=== PATIENT | male | born 1950 | race Caucasian/White ===

== ENCOUNTER 2019-02-17 14:32 | Outpatient (REF) | payer MEDICARE, BC, SELFPAY ==
[2019-02-17 21:33] LABS: Anion Gap 8.5 mmol/L (3-11); BUN 22 mg/dL (7-18); CO2 31.5 mmol/L (21.0-32.0); CREATININE 1.28 mg/dL (0.70-1.30); Calcium 9.4 mg/dL (8.5-10.1); Chloride 99 mmol/L (98-107); Cholesterol 206 mg/dL (50-200); Estimated GFR 56.06 (mL/min/1.73m2); Ferritin 13 ng/mL (8-388); Glucose 100 mg/dL (70-100); HDL Cholesterol 49 mg/dL (40-60); LDL CHOLESTEROL 139 mg/dL (<100); Sodium 139 mmol/L (136-145); Triglyceride 91 mg/dL (30-150)
[2019-02-17 21:52] LABS: Potassium 2.9 mmol/L (3.5-5.1)
== END 2019-02-17 14:52 ==
LOC: NCHCN 14:32
PROVIDERS: PCP Internal Medicine; Visit Provider Internal Medicine
DX: I10 Essential (primary) hypertension (principal); D64.9 Anemia, unspecified
CPT/HCPCS: 80048; 80061; 83721; 82728

== ENCOUNTER 2019-02-18 09:22 | Outpatient (REF) | payer MEDICARE, BC, SELFPAY ==
[2019-02-18 21:32] LABS: Potassium 3.1 mmol/L (3.5-5.1)
== END 2019-02-18 09:42 ==
LOC: NCHCN 09:22
PROVIDERS: PCP Internal Medicine; Visit Provider Internal Medicine
DX: I10 Essential (primary) hypertension (principal); E87.6 Hypokalemia
CPT/HCPCS: 83735; 84132

== ENCOUNTER 2019-02-21 09:05 | Outpatient (REF) | payer MEDICARE, BC, SELFPAY ==
[2019-02-22 08:09] LABS: Potassium 3.5 mmol/L (3.5-5.1)
== END 2019-02-21 09:25 ==
LOC: NCHCN 09:05
PROVIDERS: PCP Internal Medicine; Visit Provider Internal Medicine
DX: E87.6 Hypokalemia (principal)
CPT/HCPCS: 84132

== ENCOUNTER 2019-05-24 07:47 | Outpatient (REF) | payer MEDICARE, BC, SELFPAY ==
[2019-05-24 22:46] LABS: Anion Gap 9.7 mmol/L (3-11); BUN 17 mg/dL (7-18); CO2 28.3 mmol/L (21.0-32.0); CREATININE 1.27 mg/dL (0.70-1.30); Calcium 8.4 mg/dL (8.5-10.1); Calculated LDL 67 mg/dL; Chloride 105 mmol/L (98-107); Cholesterol 127 mg/dL (50-200); Glucose 80 mg/dL (70-100); HDL Cholesterol 49 mg/dL (40-60); Potassium 4.4 mmol/L (3.5-5.1); Sodium 143 mmol/L (136-145); Triglyceride 58 mg/dL (30-150)
== END 2019-05-24 08:07 ==
LOC: NCHCN 07:47
PROVIDERS: PCP Internal Medicine; Visit Provider Internal Medicine
DX: I10 Essential (primary) hypertension (principal); E78.5 Hyperlipidemia, unspecified
CPT/HCPCS: 80048; 80061; 83721

== ENCOUNTER 2019-09-16 07:40 | Outpatient (REF) | payer MEDICARE, BC, SELFPAY ==
[2019-09-16 20:17] LABS: HCT 45.2 % (40.0-50.0); Mean Corpuscular Hemoglobin 24.5 pg (27.0-33.0); Mean Corpuscular Volume 79.2 fL (80-95); Mean Platelet Volume 9.7 fL (8.0-11.0); Platelet Count 263 x1000/uL (130-400); RBC 5.71 m/cumm (4.50-6.00)
[2019-09-16 20:20] LABS: RBC Distribution Width 25.2 % (11.8-14.1)
[2019-09-16 20:38] LABS: Ferritin 28 ng/mL (26-388)
== END 2019-09-16 08:00 ==
LOC: NCHCN 07:40
PROVIDERS: PCP Internal Medicine; Visit Provider Internal Medicine
DX: Z86.2 Personal history of diseases of the blood and blood-forming organs and certain disorders involving the immune mechanism (principal)
CPT/HCPCS: 85027; 82728

== ENCOUNTER 2019-12-19 06:09 | Day surgery (SDC) | payer MEDICARE, BC, SELFPAY ==
[2019-12-19 06:15] VITALS: BP 137/88; PULSE 60; RESP 18; TEMP 36.3; O2SAT 96
[2019-12-19] MEDS: Lactated Ringers 1,000 ML 80 ML IV (06:45)
--- NOTE | 2019-12-19 08:37 | VOCCOR_PTH ---
PATIENT: José Luis Ace LOC: [facility] U#:[id number] AGE/SX: 69/M ROOM: RE12/19/[address]: Alessandro Aaron DO : 1950 BED: DIS: 12/19/2019 SPEC #: [id number] RECD: 12/19/19 12:44 STATUS: SHERIN REQ #: [id number] ELMIRA: 12/19/19 08:[address]: Alessandro Aaron DEPT: Surgical Specimen RECD BY: Deepika Lemus ENTERED: 12/19/19 12:44 SP TYPE: VOCCOR OTHR DR: Tayla Murray Tissues: 1 - VOCAL CORD Procedures: GROSS AND MICRO LEVEL 4 Comments: [id number]
[2019-12-19] MEDS: EPINEPHrine 1 MG/ML AMP pres-free (08:41)
[2019-12-19 09:05] VITALS: BP 131/79; PULSE 68; RESP 16; TEMP 36.3; O2SAT 99
[2019-12-19 09:10] VITALS: BP 131/71; PULSE 63; RESP 16; TEMP 36.3; O2SAT 99
[2019-12-19 09:15] VITALS: BP 122/73; PULSE 62; RESP 16; TEMP 36.3; O2SAT 100
[2019-12-19 09:30] VITALS: BP 143/72; PULSE 63; RESP 15; TEMP 36.4; O2SAT 98
[2019-12-19 10:20] VITALS: BP 143/72; PULSE 63; RESP 15; TEMP 36.4; O2SAT 98
--- NOTE | 2019-12-19 11:17 | ROE_ITS ---
DATE OF PROCEDURE: December 19, 2019 PREOPERATIVE DIAGNOSIS: Right true vocal cord lesion. POSTOPERATIVE DIAGNOSIS: Same, including history of chewing tobacco. PROCEDURE: Micro suspension direct laryngoscopy. Biopsy right true vocal cord. SURGEON: Alessandro Aaron D.O. ANESTHESIA: General. ESTIMATED BLOOD LOSS: < 1 cc COMPLICATIONS: None. CONDITION: The patient tolerated the procedure well. FINDINGS: Right mid true vocal cord lesion. Post biopsy suspect hemorrhagic-type lesion. Intraoper ative pictures taken. SPECIMENS: Right true vocal cord biopsy sent to pathology for analysis. INDICATIONS FOR PROCEDURE: This is a pleasant 69-year-old male with a long history of chewing tobacc o in the past. He underwent upper endoscopy at [facility] over six months ago. He was noted to hav e a lesion on the right true vocal cord. Recommended ENT follow-up. We have aggressively monitored him with anti-reflux medication and endoscopy in the office. He has continued to have erythema along the right cord, initially posterior. This looked good today as we mobilized the ET tube, there was irritation to the mid-cord, which bled upon intubation. There was evidence of mild ulceration, thus dictating the biopsy. We reviewed the risks and complications. Consent was placed in the Chart. We decided to proceed with surgery. PROCEDURE: The patient was brought back to the operative suite in stable condition, placed supine on the operating table and intubated in a normal fashion. The table was rotated 90 degrees. An upper dental guard was placed in the oral cavity and mouth. [facility] The Dedo laryngoscope was placed to the level of the true vocal cord and suspended with padding on the patient's chest. The patient was in a mild extension position. Operative microscope with a 4 00 lens was used to visualize the true vocal cords. Intraoperative pictures were taken with a 0 degr ee endoscope. There was evidence of some bleeding of the right mid cord upon intubation, which was c onfirmed by anesthesia. There appeared to be a friable lesion here. We lowered the cuff. We mobil ized the tube to evaluate and investigate posteriorly of the true cords bilaterally. There were no l esions. The left cord appeared very healthy. Intraoperative pictures were taken. It was felt that biopsy was required of the right true cord. We stayed superiorly off the striking surface. A very s mall, thin layer of biopsy was performed with a right angled biopsy forceps. Hemostasis was controll ed with topical epinephrine 1:1000. Post-procedure pictures and instructions were reviewed. The rem aining portion of the direct laryngoscopy was completed. The epiglottis was normal. There was no le garry within the piriform sinus. There was white coating throughout the posterior tongue. No other l esions identified. The scope was removed. All hardware removed. There were no complications. The patient was stable to PACU.
== END 2019-12-19 10:39 | disposition home or self-care (01) ==
PROVIDERS: PCP Internal Medicine; Visit Provider Otolaryngology Otolaryngology/Facial Plastic Surgery
PROC: 0CJS8ZZ Inspection of Larynx, Via Natural or Artificial Opening Endoscopic (ICD-10-PCS; CPT 31536; principal; 2019-12-19 07:30)
DX: J38.3 Other diseases of vocal cords (principal); F17.220 Nicotine dependence, chewing tobacco, uncomplicated
CPT/HCPCS: 31536; 88305; J0171; J1100; J2001; J2250; J2405; J2704; J3010

== ENCOUNTER 2020-02-14 00:42 | Outpatient (REF) | payer MEDICARE, BC, SELFPAY ==
[2020-02-14 21:17] LABS: HCT 45.2 % (40.0-50.0); HGB 15.1 g/dL (13.5-17.5); Mean Corp. HGB Concentration 33.4 g/dL (32.0-36.0); Mean Corpuscular Hemoglobin 30.1 pg (27.0-33.0); Platelet Count 159 x1000/uL (130-400); RBC 5.02 m/cumm (4.50-6.00); RBC Distribution Width 14.5 % (11.8-14.1); White Blood Cell Count 5.66 k/cumm (4.4-10.8)
[2020-02-14 21:49] LABS: Iron 76 ug/dL (65-175); Total Iron Binding Capacity 275 ug/dL (250-450); Transferrin Sat 28 % (20-55)
[2020-02-14 22:07] LABS: Ferritin 80 ng/mL (26-388)
== END 2020-02-14 01:02 ==
LOC: NCHCN 00:42
PROVIDERS: PCP Internal Medicine; Visit Provider Internal Medicine
DX: D64.9 Anemia, unspecified (principal)
CPT/HCPCS: 85027; 82728; 83540; 83550

== ENCOUNTER 2020-05-28 08:43 | Outpatient (REF) | payer MEDICARE, BC, SELFPAY ==
[2020-05-28 20:30] LABS: HCT 47.8 % (40.0-50.0); HGB 15.6 g/dL (13.5-17.5); MCH 29.4 pg (27.0-33.0); MCHC 32.6 % (32.0-36.0); Platelet Count 201 10^3/uL (130-400); RBC 5.31 10^6/uL (4.36-5.78); RDW 14.1 % (11.8-14.1); RDW-SD 46.4 fL
[2020-05-28 20:58] LABS: Anion Gap 9.2 mmol/L (3-11); BUN 16 mg/dL (7-18); CO2 30.8 mmol/L (21.0-32.0); CREATININE 1.26 mg/dL (0.70-1.30); Calcium 8.8 mg/dL (8.5-10.1); Chloride 100 mmol/L (98-107); Estimated GFR 56.74 (mL/min/1.73m2); Ferritin 124 ng/mL (26-388); Glucose 92 mg/dL (74-106); Potassium 3.1 mmol/L (3.5-5.1); Sodium 140 mmol/L (136-145)
== END 2020-05-28 09:03 ==
LOC: NCHCN 08:43
PROVIDERS: PCP Internal Medicine; Visit Provider Internal Medicine
DX: E87.6 Hypokalemia (principal); Z86.2 Personal history of diseases of the blood and blood-forming organs and certain disorders involving the immune mechanism
CPT/HCPCS: 80048; 85027; 82728

== ENCOUNTER 2020-06-06 11:02 | Outpatient (REF) | payer MEDICARE, BC, SELFPAY ==
[2020-06-06 19:47] LABS: Ferritin 108 ng/mL (26-388); Potassium 3.4 mmol/L (3.5-5.1)
[2020-06-07 17:00] LABS: PSA, Screening 1.2 ng/mL (0.0-4.5)
== END 2020-06-06 11:22 ==
LOC: NCHCN 11:02
PROVIDERS: PCP Internal Medicine; Visit Provider Internal Medicine
DX: E87.6 Hypokalemia (principal); Z86.2 Personal history of diseases of the blood and blood-forming organs and certain disorders involving the immune mechanism; Z12.5 Encounter for screening for malignant neoplasm of prostate
CPT/HCPCS: 84153; 82728; 84132

== ENCOUNTER 2020-06-22 11:27 | Outpatient (REF) | payer MEDICARE, BC, SELFPAY ==
[2020-06-22 22:15] LABS: Anion Gap 8.8 mmol/L (3-11); BUN 27 mg/dL (7-18); CO2 27.2 mmol/L (21.0-32.0); CREATININE 1.41 mg/dL (0.70-1.30); Calcium 8.7 mg/dL (8.5-10.1); Chloride 104 mmol/L (98-107); Estimated GFR 49.84 (mL/min/1.73m2); Glucose 111 mg/dL (74-106); Potassium 3.4 mmol/L (3.5-5.1); Sodium 140 mmol/L (136-145)
== END 2020-06-22 11:47 ==
LOC: NCHCN 11:27
PROVIDERS: PCP Internal Medicine; Visit Provider Internal Medicine
DX: I10 Essential (primary) hypertension (principal)
CPT/HCPCS: 80048

== ENCOUNTER 2020-07-31 09:08 | Outpatient (REF) | payer MEDICARE, BC, SELFPAY ==
[2020-07-31 21:48] LABS: Anion Gap 6.8 mmol/L (3-11); BUN 20 mg/dL (7-18); CO2 31.2 mmol/L (21.0-32.0); CREATININE 1.45 mg/dL (0.70-1.30); Chloride 104 mmol/L (98-107); Estimated GFR 48.25 (mL/min/1.73m2); Glucose 104 mg/dL (74-106); Potassium 4.5 mmol/L (3.5-5.1); Sodium 142 mmol/L (136-145)
== END 2020-07-31 09:28 ==
LOC: NCHCN 09:08
PROVIDERS: PCP Internal Medicine; Visit Provider Internal Medicine
DX: E87.6 Hypokalemia (principal)
CPT/HCPCS: 80048

== ENCOUNTER 2020-08-30 13:03 | Outpatient (CLI) | payer MEDICARE, BC, SELFPAY ==
--- NOTE | 2020-08-30 10:30 | DI.RAD_ITS ---
EXAM: XR KNEE LT 3V AP,LAT,TIANA CLINICAL HISTORY: left knee pain. TECHNIQUE: 2D digital imaging was performed. COMPARISON: No exams were available for comparison FINDINGS: Mild degenerative changes are seen in the left knee characterized by joint space narrowing and periar ticular spurring most marked in the medial femoral tibial joint space. The bones are intact and norm ally mineralized. No joint effusion is seen. The soft tissues are unremarkable. IMPRESSION: Mild degenerative changes of the left knee. DATA REPOSITORY: RADIATION DOSE DELIVERED:
== END 2020-08-30 13:23 ==
PROVIDERS: PCP Internal Medicine; Referring Provider Internal Medicine; Visit Provider Student in an Organized Health Care Education/Training Program
DX: M17.12 Unilateral primary osteoarthritis, left knee (principal); M25.562 Pain in left knee
CPT/HCPCS: 73562; 99203; 99214

== ENCOUNTER → 2020-09-27 09:22 | Outpatient (BNVA) | payer MEDICARE, BC, SELFPAY | PROVIDERS: PCP Internal Medicine; Referring Provider Internal Medicine; Visit Provider Student in an Organized Health Care Education/Training Program | DX: M25.562 Pain in left knee (principal); M17.12 Unilateral primary osteoarthritis, left knee | CPT/HCPCS: 99441 ==

== ENCOUNTER 2021-02-01 10:11 | Outpatient (REF) | payer MEDICARE, BC, SELFPAY ==
[2021-02-01 13:30] LABS: Anion Gap 9.2 mmol/L (3-11); BUN 21 mg/dL (7-18); CO2 25.8 mmol/L (21.0-32.0); Calcium 8.9 mg/dL (8.5-10.1); Chloride 106 mmol/L (98-107); Glucose 96 mg/dL (74-106); Potassium 3.9 mmol/L (3.5-5.1); Sodium 141 mmol/L (136-145)
== END 2021-02-01 10:12 | disposition home or self-care (01) ==
LOC: NCHCN 10:11
PROVIDERS: PCP Internal Medicine; Visit Provider Nurse Practitioner Family
DX: I10 Essential (primary) hypertension (principal)
CPT/HCPCS: 80048

== ENCOUNTER 2021-08-20 09:37 | Outpatient (REF) | payer MEDICARE, BC, SELFPAY ==
[2021-08-20 15:09] LABS: Abs Immature Grans 0.01 10^3/uL (0.0-0.06); Absolute Basophil Count 0.04 10^3/uL (0.0-0.2); Absolute Eosinophil Count 0.11 10^3/uL (0.0-0.7); Absolute Lymphocyte Count 2.12 10^3/uL (1.2-3.4); Absolute Monocyte Count 0.71 10^3/uL (0.1-0.8); Absolute Neutrophil Count 3.72 10^3/uL (1.2-6.7); Basophils % 0.6; Eosinophils % 1.6; HCT 47.1 % (40.0-50.0); HGB 15.2 g/dL (13.5-17.5); Immature Grans % 0.1; Lymphocytes % 31.6; MCH 30.1 pg (27.0-33.0); MCHC 32.3 % (32.0-36.0); MCV 93.3 fL (80-95); Monocytes % 10.6; Neutrophils % 55.5; Nucleated RBC 0 %; Platelet Count 193 10^3/uL (130-400); RBC 5.05 10^6/uL (4.36-5.78); RDW 12.9 % (11.8-14.1); RDW-SD 44.6 fL; WBC 6.71 10^3/uL (4.4-10.8)
== END 2021-08-20 09:38 | disposition home or self-care (01) ==
LOC: NCHCN 09:37
PROVIDERS: PCP Internal Medicine; Visit Provider Internal Medicine
DX: I10 Essential (primary) hypertension (principal); I69.952 Hemiplegia and hemiparesis following unspecified cerebrovascular disease affecting left dominant side; M17.0 Bilateral primary osteoarthritis of knee
CPT/HCPCS: 85025

== ENCOUNTER 2022-01-01 01:31 | Outpatient (CLI) | payer MEDICARE, BC, SELFPAY ==
--- NOTE | 2022-01-01 | DI.CT_ITS ---
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 TECHNIQUE: Imaging Protocol: Axial CT angiography was performed with multi-slice acquisition and mu lti-planar and/or 3D reconstructions. CONTRAST MATERIAL: Intravenous: Omnipaque 350 Contrast volume:100 mL COMPARISON: CT CT NECK W CONTRAST from 06/26/2021 . performed at outside institution. FINDINGS: Visualized paranasal sinuses: Some mucosal thickening is noted in the left maxillary sinus. No assoc iated fluid level therein. Nasopharynx: Unremarkable Oropharynx: No obvious abnormality. Retropharyngeal space: Unremarkable. Hypopharynx: Free edge of the epiglottis and valleculae appear unremarkable. Aryepiglottic folds sugar ear unremarkable. Patient appears to have held his breath during this study making evaluation of the vocal cords and supraglottic airway somewhat less than optimal. No obvious asymmetric mass evident in this region. Subglottic airway appears unremarkable. Thyroid gland: Normal size. No obvious nodules. Salivary glands: Parotid and submandibular glands appear unremarkable. Lymph nodes: No significant lymphadenopathy in the neck nor within the supraclavicular regions. Vascular: No tight stenosis at the level the carotid bifurcation and proximal internal carotid arteri es. Both vertebral arteries are patent in the foramen transversarium. Osseous: No lytic nor blastic lesions identified within the field of view of this study. Chronic-typ e disc space narrowing at C5-6 and C6-7 and C7-T1 levels. IMPRESSION: 1. No evidence of obvious recurrence nor metastatic disease nor lymphadenopathy in the neck. 2. Please note that the patient apparently held his breath during image acquisition, causing some air way constriction and subsequently less than optimal evaluation, as described above. Recommend that t his patient return at no additional charge for repeat imaging with quiet breathing (instead of breath holding) in order to better visualize the vocal cords and supraglottic airway. I do not feel that t his would require an additional contrast injection RADIATION DOSE DELIVERED: 501.47mGy.cm Total DLP DATA REPOSITORY: All CT scans at this facility are submitted to the National Radiology Data Registry (NRDR) Dose Index Registry (DIR) with the [employer] (A[employer]). RADIATION OPTIMIZATION: All CT scans at this facility use at least one of these dose optimization te chniques: automated exposure control; mA and/or kV adjustment per patient size (includes targeted exa ms where dose is matched to clinical indication); or iterative reconstruction.
[2022-01-01 08:45] LABS: CREATININE 1.3 mg/dL (0.70-1.30); Estimated GFR 54.57 (mL/min/1.73m2)
[2022-01-01] MEDS: Omnipaque 350 MG/ML 100 ML BTL IJ (09:14)
[2022-01-01] MEDS: Normal Saline Flush 10 ML SYR IVP (09:15)
== END 2022-01-01 01:51 ==
PROVIDERS: Physician Assistant; PCP Internal Medicine; Visit Provider Otolaryngology
DX: C32.9 Malignant neoplasm of larynx, unspecified (principal)
CPT/HCPCS: 70491; 82565; J3490

== ENCOUNTER → 2022-05-30 00:14 | Outpatient (CLI) | payer MEDICARE, BC, SELFPAY ==
[2022-05-30 14:21] LABS: BUN 16 mg/dL (7-18); CREATININE 1.2 mg/dL (0.70-1.30); Estimated GFR 59.68 (mL/min/1.73m2)
[2022-05-30] MEDS: Omnipaque 350 MG/ML 100 ML BTL IJ (14:51)
[2022-05-30] MEDS: Normal Saline Flush 10 ML SYR IVP (14:52)
--- NOTE | 2022-05-30 15:15 | DI.CT_ITS ---
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 TECHNIQUE: Imaging Protocol: Axial computed tomography images with coronal and sagittal reformatted images were created and reviewed CONTRAST MATERIAL: Intravenous: Omnipaque 350 Contrast volume:100 cc Oral: no COMPARISON: CT CT NECK W from 01/01/2022 FINDINGS: There is artifact related to dental work. Parotids/submandibular/thyroid gland: Normal. Lymphadenopathy: There is scattered lymph nodes seen along the level one to level three all measurin g less than 8 mm in short axis diameter which are physiologic in nature. Carotids/Jugular: No evidence stenosis or dissection. Soft tissues: The floor the mouth is unremarkable. The epiglottis and vocal cords are within normal limits. Images through both lung apices are unremarkable. A pacemaker overlies the left chest. The orbits, sinuses and visualized portions of the brain are unremarkable. Bones: Degenerative disc changes. IMPRESSION: No evidence of mass or adenopathy. RADIATION DOSE DELIVERED: 405.52mGy.cm Total DLP DATA REPOSITORY: All CT scans at this facility are submitted to the National Radiology Data Registry (NRDR) Dose Index Registry (DIR) with the [employer] (A[employer]). RADIATION OPTIMIZATION: All CT scans at this facility use at least one of these dose optimization te chniques: automated exposure control; mA and/or kV adjustment per patient size (includes targeted exa ms where dose is matched to clinical indication); or iterative reconstruction.
== END ==
PROVIDERS: PCP Internal Medicine; Visit Provider Physician Assistant
DX: C32.0 Malignant neoplasm of glottis (principal)
CPT/HCPCS: 70491; 84520; 82565; J3490

== ENCOUNTER 2022-08-15 13:12 | Outpatient (REF) | payer MEDICARE, BC, SELFPAY ==
[2022-08-15 15:44] LABS: HCT 46.5 % (40.0-50.0); HGB 15.3 g/dL (13.5-17.5); MCH 30.7 pg (27.0-33.0); MCHC 32.9 % (32.0-36.0); MCV 93 fL (80-95); Platelet Count 164 10^3/uL (130-400); RBC 4.98 10^6/uL (4.36-5.78); RDW 13.2 % (11.8-14.1); RDW-SD 45.3 fL; WBC 5.44 10^3/uL (4.4-10.8)
[2022-08-15 16:49] LABS: Anion Gap 6.3 mmol/L (3-11); BUN 16 mg/dL (7-18); CO2 31.7 mmol/L (21.0-32.0); CREATININE 1.1 mg/dL (0.70-1.30); Calcium 9.1 mg/dL (8.5-10.1); Calculated LDL 74 mg/dL (<100); Chloride 103 mmol/L (98-107); Cholesterol 136 mg/dL (<200); Estimated GFR 71.77 (mL/min/1.73m2); Ferritin 199 ng/mL (26-388); Glucose 84 mg/dL (74-106); HDL Cholesterol 48 mg/dL (40-60); Potassium 4.2 mmol/L (3.5-5.1); Sodium 141 mmol/L (136-145); Triglyceride 72 mg/dL (<150)
== END 2022-08-15 13:13 | disposition home or self-care (01) ==
LOC: NCHCN 13:12
PROVIDERS: PCP Internal Medicine; Visit Provider Nurse Practitioner Family
DX: E78.5 Hyperlipidemia, unspecified (principal); I10 Essential (primary) hypertension; Z86.2 Personal history of diseases of the blood and blood-forming organs and certain disorders involving the immune mechanism; I48.91 Unspecified atrial fibrillation
CPT/HCPCS: 80048; 80061; 85027; 82728

== ENCOUNTER 2022-11-03 01:29 | Outpatient (CLI) | payer MEDICARE, BC, SELFPAY ==
[2022-11-03 08:33] LABS: CREATININE 1.3 mg/dL (0.70-1.30); Estimated GFR 58.73 (mL/min/1.73m2)
--- NOTE | 2022-11-03 09:15 | DI.CT_ITS ---
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 TECHNIQUE: Imaging Protocol: Axial computed tomography images with coronal and sagittal reformatted images were created and reviewed. CONTRAST MATERIAL: Intravenous: Omnipaque 350 Contrast volume:100mL COMPARISON: CT CT NECK W CONTRAST from 06/26/[address] NECK W from 05/30/2022 FINDINGS: The examination is limited due to patient motion artifact. Orbits and orbital soft tissues: Within normal limits. Visualized paranasal sinuses: There is mild mucosal thickening in the left maxillary sinus. The rem aining visualized paranasal sinuses and mastoid air cells are clear. Nasopharynx: Within normal limits. Oropharynx: Within normal limits. Hypopharynx: Within normal limits. Larynx: Within normal limits. Retropharyngeal space: Within normal limits. Parotids/submandibular: Within normal limits. Thyroid gland: Within normal limits. Lymphadenopathy: There is scattered lymph nodes seen along the level one to level three all measurin g less than 8 mm in short axis diameter which are physiologic in nature. Trachea: Within normal limits. Lung apices: Within normal limits. Bones: Within normal limits for the patient's age. No aggressive osseous lesions are present. Carotids/Jugular: Within normal limits. Soft tissues: Within normal limits. There is a battery pack in the soft tissues of the left chest w all. IMPRESSION: No evidence of a neck mass or adenopathy. RADIATION DOSE DELIVERED: 558.84mGy.cm Total DLP 558.84mGy.cm Total DLP DATA REPOSITORY: All CT scans at this facility are submitted to the National Radiology Data Registry (NRDR) Dose Index Registry (DIR) with the [employer] (ACR). RADIATION OPTIMIZATION: All CT scans at this facility use at least one of these dose optimization te chniques: automated exposure control; mA and/or kV adjustment per patient size (includes targeted exa ms where dose is matched to clinical indication); or iterative reconstruction.
[2022-11-03] MEDS: Omnipaque 350 MG/ML 100 ML BTL IJ (09:25)
[2022-11-03] MEDS: Normal Saline - Diluent 50 ML VIAL IV (09:26)
== END 2022-11-03 01:49 ==
LOC: DI 01:29
PROVIDERS: PCP Internal Medicine; Visit Provider Physician Assistant
DX: C32.9 Malignant neoplasm of larynx, unspecified (principal)
CPT/HCPCS: 70491; 82565; J3490

== ENCOUNTER 2023-06-05 10:46 | Outpatient (REF) | payer MEDICARE, BC, SELFPAY ==
--- NOTE | 2023-06-05 10:00 | SOFT_PTH ---
PATIENT: José Luis Ace LOC: [facility] U#:[id number] AGE/SX: 73/M ROOM: RE06/05/[address]: THIAGO Juarez : 1950 BED: DIS: 06/05/2023 SPEC #: [id number] RECD: 06/05/23 14:49 STATUS: SHERIN REAlycia #: [id number] ELMIRA: 06/05/23 10:[address]: Sriram Morrison DEPT: Surgical Specimen RECD BY: Chester Marie ENTERED: 06/05/23 14:50 SP TYPE: SOFT OTHR DR: Tayla Murray Tissues: 1 - SOFT TISSUE MASS(BX SIMPLE) Procedures: SKIN LEVEL 4 Comments: [id number]
== END 2023-06-05 10:47 | disposition home or self-care (01) ==
LOC: LBN 10:46
PROVIDERS: PCP Internal Medicine; Visit Provider Physician Assistant
DX: D23.39 Other benign neoplasm of skin of other parts of face (principal); J34.89 Other specified disorders of nose and nasal sinuses
CPT/HCPCS: 88305; 88307

== ENCOUNTER 2023-09-08 16:10 | Outpatient (REF) | payer MEDICARE, BC, SELFPAY | END 2023-09-08 16:11 | disposition home or self-care (01) | LOC: NCHCN 16:10 | PROVIDERS: PCP Internal Medicine; Visit Provider Physician Assistant | DX: L03.115 Cellulitis of right lower limb (principal) | CPT/HCPCS: 87070; 87205 ==

== ENCOUNTER 2023-09-16 09:11 | Outpatient (REF) | payer MEDICARE, BC, SELFPAY ==
[2023-09-16 22:14] LABS: Abs Immature Grans 0.01 10^3/uL (0.0-0.06); Absolute Basophil Count 0.07 10^3/uL (0.0-0.2); Absolute Lymphocyte Count 2.06 10^3/uL (1.2-3.4); Absolute Monocyte Count 0.79 10^3/uL (0.1-0.8); Basophils % 1.2; Eosinophils % 3.4; HCT 48.4 % (40.0-50.0); HGB 16.2 g/dL (13.5-17.5); Immature Grans % 0.2; Lymphocytes % 35.3; MCH 30.9 pg (27.0-33.0); MCHC 33.5 % (32.0-36.0); MCV 92 fL (80-95); MPV 9.7 fL (8.0-11.0); Monocytes % 13.6; Neutrophils % 46.3; Platelet Count 171 10^3/uL (130-400); RBC 5.25 10^6/uL (4.36-5.78); RDW 13.1 % (11.8-14.1); RDW-SD 44.1 fL; WBC 5.83 10^3/uL (4.4-10.8)
[2023-09-16 22:17] LABS: Anion Gap 8.2 mmol/L (3-11); BUN 24 mg/dL (7-18); C-Reactive Protein 0.29 mg/dL (0.0-0.3); CO2 26.8 mmol/L (21.0-32.0); CREATININE 1.7 mg/dL (0.70-1.30); Calcium 9.6 mg/dL (8.5-10.1); Chloride 101 mmol/L (98-107); ESR 37 mm/hr (0-20); Glucose 93 mg/dL (74-106); Potassium 4.6 mmol/L (3.5-5.1); Sodium 136 mmol/L (136-145)
== END 2023-09-16 09:12 ==
LOC: NCHCN 09:11
PROVIDERS: PCP Internal Medicine; Visit Provider Nurse Practitioner Family
DX: L03.90 Cellulitis, unspecified (principal)
CPT/HCPCS: 80048; 85652; 85025; 86140

== ENCOUNTER 2024-01-13 09:50 | Outpatient (REF) | payer MEDICARE, BC, SELFPAY ==
[2024-01-13 15:19] LABS: Anion Gap 8.5 mmol/L (3-11); BUN 21 mg/dL (7-18); CO2 26.5 mmol/L (21.0-32.0); CREATININE 1.3 mg/dL (0.70-1.30); Chloride 104 mmol/L (98-107); Estimated GFR 58.37 (mL/min/1.73m2); Glucose 103 mg/dL (74-106); Potassium 3.9 mmol/L (3.5-5.1); Sodium 139 mmol/L (136-145)
== END 2024-01-13 09:51 | disposition home or self-care (01) ==
LOC: NCHCN 09:50
PROVIDERS: PCP Internal Medicine; Visit Provider Internal Medicine
DX: N17.9 Acute kidney failure, unspecified (principal)
CPT/HCPCS: 80048

== ENCOUNTER → 2024-02-16 02:37 | Outpatient (CLI) | payer MEDICARE, BC, SELFPAY ==
--- NOTE | 2024-02-16 07:15 | DI.CT_ITS ---
Exam(s) CT NECK W EXAM: CT NECK W CLINICAL HISTORY: h/o SCC left vocal cord,monitoring,nasal mass,h/o smoker.c32.0. TECHNIQUE: Imaging Protocol: Axial computed tomography images with coronal and sagittal reformatted images were created and reviewed CONTRAST MATERIAL: Intravenous: Omnipaque 350 Contrast volume:100 ml contrast COMPARISON: CT CT NECK W from 11/03/2022 FINDINGS: Parotids: Normal. Submandibular glands: Normal. Thyroid gland: Normal. Lymph nodes: There are scattered lymph nodes seen along the level one to level three all measuring le ss than 8 mm in short axis diameter which are physiologic in nature. Carotids arteries: No significant stenosis or dissection. Vertebral arteries: No significant stenosis or dissection. Oropharynx: The floor the mouth is unremarkable. The tonsils and adenoids are unremarkable. The epiglottis and vocal cords are within normal limits. Lungs: Images through both lung apices are unremarkable. Bones: Degenerative changes of the cervical spine. No lytic or blastic lesions identified. Poor den tition. Multiple periapical lucencies. Visualized portions of the brain and orbits: Unremarkable. Sinuses and mastoids: Mucous retention in the maxillary sinuses, left greater than right. Soft tissues: Moderate pack over left pectoral muscle. IMPRESSION: No evidence of a mass or adenopathy. No visible nasal mass. RADIATION DOSE DELIVERED: 409.31mGy.cm Total DLP DATA REPOSITORY: All CT scans at this facility are submitted to the National Radiology Data Registry (NRDR) Dose Index Registry (DIR) with the [employer] (ACR). RADIATION OPTIMIZATION: All CT scans at this facility use at least one of these dose optimization te chniques: automated exposure control; mA and/or kV adjustment per patient size (includes targeted exa ms where dose is matched to clinical indication); or iterative reconstruction.
[2024-02-16 08:49] LABS: BUN 21 mg/dL (7-18); CREATININE 1.3 mg/dL (0.70-1.30); Estimated GFR 58.37 (mL/min/1.73m2)
[2024-02-16] MEDS: Normal Saline - Diluent 50 ML VIAL IJ (09:24)
[2024-02-16] MEDS: Omnipaque 350 MG/ML 100 ML BTL IJ (09:25)
== END ==
PROVIDERS: PCP Internal Medicine; Visit Provider Physician Assistant
DX: C32.0 Malignant neoplasm of glottis (principal); Z87.891 Personal history of nicotine dependence; J34.89 Other specified disorders of nose and nasal sinuses
CPT/HCPCS: 36415; 70491; 84520; 82565; J3490

== ENCOUNTER 2025-04-05 17:59 | Outpatient (REF) | payer MEDICARE, BC, SELFPAY ==
[2025-04-05 20:55] LABS: HGB 14.6 g/dL (13.5-17.5); MCH 31.1 pg (27.0-33.0); MCHC 33.2 % (32.0-36.0); MCV 94 fL (80-95); MPV 9.9 fL (8.0-11.0); Platelet Count 155 10^3/uL (130-400); RBC 4.69 10^6/uL (4.36-5.78); RDW 13.3 % (11.8-14.1); RDW-SD 46.1 fL; WBC 6.12 10^3/uL (4.4-10.8)
[2025-04-05 21:16] LABS: Hemoglobin A1C 5.8 % (<5.7)
[2025-04-05 21:17] LABS: Anion Gap 0.9 mmol/L (3-11); BUN 19 mg/dL (7-18); CO2 30.1 mmol/L (21.0-32.0); CREATININE 1.1 mg/dL (0.70-1.30); Calcium 8.8 mg/dL (8.5-10.1); Calculated LDL 63 mg/dL (<100); Chloride 106 mmol/L (98-107); Cholesterol 132 mg/dL (<200); Estimated GFR 70.88 (mL/min/1.73m2); Glucose 84 mg/dL (74-106); HDL Cholesterol 46 mg/dL (>or=40); Potassium 4.1 mmol/L (3.5-5.1); Sodium 137 mmol/L (136-145); Triglyceride 115 mg/dL (<150)
== END 2025-04-05 18:00 | disposition home or self-care (01) ==
LOC: NCHCN 17:59
PROVIDERS: PCP Internal Medicine; Visit Provider Internal Medicine
DX: E78.5 Hyperlipidemia, unspecified (principal); R73.09 Other abnormal glucose; I10 Essential (primary) hypertension
CPT/HCPCS: 80048; 80061; 85027; 83036